=== PATIENT | female | born 2000 | race Two or more races ===

== ENCOUNTER 2024-11-26 23:46 | Emergency (ER) | payer OTHER ==
[~2024-11-26] VITALS: Ht 160 cm; Wt 86.2 kg
[2024-11-27] MEDS ORDERED: IBUprofen 800 MG TABLET PO STA (00:42)
== END 2024-11-27 02:11 | disposition home or self-care (01) ==
LOC: ER 23:48
DX: S93.492A Sprain of other ligament of left ankle, initial encounter (principal); X50.1XXA Overexertion from prolonged static or awkward postures, initial encounter; Y93.89 Activity, other specified; Y92.89 Other specified places as the place of occurrence of the external cause